=== PATIENT | female | born 1980 | race Hispanic/Latino ===

== ENCOUNTER → 2022-05-17 | Day surgery (SDC) | payer BC ==
[2011-06-30 11:19] VITALS: BP 97/55
--- NOTE | 2022-05-17 14:06 | RAD REPORT ---
EXAM DESCRIPTION: Ultrasound-guided right breast core biopsy CLINICAL HISTORY: Right breast mass R92.8 COMPARISON: Follow Up [facility] dated 05/06/2022; 3D DIAG UNI F/U dated 05/06/2022 FINDINGS: The benefits and risks were explained to the patient, and informed consent was obtained. T leland-out procedure was performed. The patient's right breast was prepped and draped in the usual sterile fashion. 6 mL of 1% lidocaine was used for local anesthetic purposes. Utilizing aseptic technique and under direct ultrasound guidance, an 11 gauge gauge core biopsy devic e was used to obtain 3 core specimens through the mass of interest approximately at 10 o'clock positi on Radian. A post biopsy clip was then placed. All collected material was sent for cytology. Patient tolerated procedure well. IMPRESSION: Successful ultrasound guided core biopsy of a right breast mass.
== END ==
LOC: DS 09:45
PROVIDERS: ATTEND Nurse Practitioner Women's Health
DX: R92.8 Other abnormal and inconclusive findings on diagnostic imaging of breast (principal)
CPT/HCPCS: 19083; 88305